=== PATIENT | male | born 1995 | race Caucasian/White ===

== ENCOUNTER 2017-01-21 21:31 | Emergency (ER) | payer OTHER ==
[~2017-01-21] VITALS: Ht 170.2 cm; Wt 98.6 kg
[2017-01-21 23:21] VITALS: BP 127/66
== END 2017-01-21 23:38 | disposition home or self-care (01) ==
LOC: EMS 21:33
DX: S50.862A Insect bite (nonvenomous) of left forearm, initial encounter (principal); R03.0 Elevated blood-pressure reading, without diagnosis of hypertension; W57.XXXA Bitten or stung by nonvenomous insect and other nonvenomous arthropods, initial encounter; Y93.89 Activity, other specified; Y92.89 Other specified places as the place of occurrence of the external cause; Y99.8 Other external cause status
CPT/HCPCS: 99282

== ENCOUNTER 2022-07-09 15:38 | Emergency (ER) | payer MEDICAID, OTHER ==
[~2022-07-09] VITALS: Ht 172.7 cm; Wt 107.3 kg
[2022-07-09 16:08] VITALS: BP 148/89
== END 2022-07-09 16:09 | disposition home or self-care (01) ==
LOC: EMS 15:38
DX: S81.012D Laceration without foreign body, left knee, subsequent encounter (principal); Z48.02 Encounter for removal of sutures; X58.XXXD Exposure to other specified factors, subsequent encounter
CPT/HCPCS: 99281; Z7502